=== PATIENT | female | born 1975 ===

== ENCOUNTER 2021-11-21 19:41 | Emergency (ER) | payer OTHER, SELFPAY ==
[2021-11-21 20:05] VITALS: BP 116/79; PULSE 70; RESP 18; TEMP 36.6; O2SAT 98; BMI 20.3
== END 2021-11-22 01:05 | disposition left against medical advice (07) ==
LOC: HO.ED 11-22 01:03
PROVIDERS: Emergency Provider Emergency Medicine
DX: Z04.1 Encounter for examination and observation following transport accident (principal)
CPT/HCPCS: 99281